=== PATIENT | female | born 1980 | race African-American/Black ===

== ENCOUNTER → 2016-07-04 | Outpatient (CLI) | payer BC ==
[2016-07-04 18:25] LABS: BASO % 0.3 % (0.0-1.0); EOS % 0.8 % (0.0-3.0); LYMPH # 2.1 K/mm3 (1.5-4.5); LYMPH % 31.9 % (24.0-44.0); MEAN CORPUSCULAR HEMOGLOBIN 30.3 pg (27.0-33.0); MEAN CORPUSCULAR HGB CONC 33.7 g/dl (32.0-36.5); MONO # 0.3 K/mm3 (0.0-0.8); MONO % 4.6 % (0.0-5.0); NEUTROPHILS # 3.7 K/mm3 (1.8-7.7); NEUTROPHILS % 60.4 % (36.0-66.0); RED CELL DISTRIBUTION WIDTH 12.7 % (11.5-14.5); WHITE BLOOD COUNT 6.1 K/mm3 (4.0-10.0)
[2016-07-04 18:35] LABS: ALBUMIN 3.9 GM/DL (3.2-5.2); ALBUMIN/GLOBULIN RATIO 1.22 (1.00-1.93); ALKALINE PHOSPHATASE 60 U/L (45-117); ALT/SGPT 15 U/L (12-78); ANION GAP 9 MEQ/L (8-16); AST/SGOT 16 U/L (15-37); BILIRUBIN,TOTAL 0.5 MG/DL (0.2-1.0); BLOOD UREA NITROGEN 10 MG/DL (7-18); CALCIUM LEVEL 8.7 MG/DL (8.5-10.1); CARBON DIOXIDE LEVEL 26 MEQ/L (21-32); CHLORIDE LEVEL 104 MEQ/L (98-107); CHOLESTEROL LEVEL 173 MG/DL (<200); CREATININE FOR GFR 1.06 MG/DL (0.55-1.02); GLOMERULAR FILTRATION RATE > 60.0 (>60); GLUCOSE, FASTING 70 MG/DL (70-105); SODIUM LEVEL 139 MEQ/L (136-145); THYROXINE (T4) 8.2 UG/DL (4.5-12.0); TOTAL PROTEIN 7.1 GM/DL (6.4-8.2); TRIGLYCERIDES LEVEL 67 MG/DL (<150)
== END ==
LOC: M SMT 15:31
PROVIDERS: ATTEND Family Medicine
DX: Z00.00 Encounter for general adult medical examination without abnormal findings (principal); E55.9 Vitamin D deficiency, unspecified

== ENCOUNTER → 2017-11-06 | Outpatient (REF) | payer BC ==
[2017-11-10 14:22] LABS: HPV HYBRID CAPTURE II Negative (Negative)
== END ==
LOC: M LAB REF 17:03
DX: Z12.4 Encounter for screening for malignant neoplasm of cervix (principal)
CPT/HCPCS: G0123

== ENCOUNTER → 2017-11-20 | Outpatient (REF) | payer BC ==
[2017-11-20 11:06] LABS: BASO % 0.4 % (0.0-1.0); EOS # 0.1 10^3/uL (0.0-0.50); HEMATOCRIT 33.7 % (36.0-47.0); HEMOGLOBIN 11.7 g/dl (12.0-15.5); IMMATURE GRANULOCYTE % 0.2 % (0-3.0); LYMPH # 1.5 10^3/uL (1.5-4.5); LYMPH % 30.1 % (24.0-44.0); MEAN CORPUSCULAR HEMOGLOBIN 30.5 pg (27.0-33.0); MEAN CORPUSCULAR HGB CONC 34.7 g/dl (32.0-36.5); MONO # 0.3 10^3/uL (0.0-0.8); NEUTROPHILS # 3.1 10^3/uL (1.8-7.7); NEUTROPHILS % 62.3 % (36.0-66.0); PLATELET COUNT, AUTOMATED 299 10^3/uL (150-450); RED BLOOD COUNT 3.83 10^6/uL (4.00-5.40); RED CELL DISTRIBUTION WIDTH 13.1 % (11.5-14.5)
[2017-11-20 11:26] LABS: TOTAL 25(OH) VITAMIN D 34.4 NG/ML (30.0-100.0)
[2017-11-20 11:34] LABS: ALBUMIN 3.9 GM/DL (3.2-5.2); ALBUMIN/GLOBULIN RATIO 1.11 (1.00-1.93); ALKALINE PHOSPHATASE 77 U/L (45-117); ALT/SGPT 18 U/L (12-78); ANION GAP 9 MEQ/L (8-16); AST/SGOT 15 U/L (7-37); BILIRUBIN,TOTAL 0.4 MG/DL (0.2-1.0); BLOOD UREA NITROGEN 14 MG/DL (7-18); CALCIUM LEVEL 8.9 MG/DL (8.5-10.1); CARBON DIOXIDE LEVEL 26 MEQ/L (21-32); CHLORIDE LEVEL 107 MEQ/L (98-107); CREATININE FOR GFR 1.15 MG/DL (0.55-1.30); FERRITIN 38 NG/ML (8-252); GLOMERULAR FILTRATION RATE > 60.0 (>60); GLUCOSE, FASTING 96 MG/DL (70-100); IRON (FE) 75 UG/DL (50-170); PERCENT SATURATION 24.5 % (13.2-45.0); POTASSIUM SERUM 4.3 MEQ/L (3.5-5.1); SODIUM LEVEL 142 MEQ/L (136-145); TOTAL IRON BINDING CAPACITY 306 UG/DL (250-450); TOTAL PROTEIN 7.4 GM/DL (6.4-8.2)
== END ==
LOC: M SFHCSACK 10:47
DX: D64.9 Anemia, unspecified (principal); E55.9 Vitamin D deficiency, unspecified
CPT/HCPCS: 83550

== ENCOUNTER → 2017-11-20 | Outpatient (REF) | payer BC ==
[2017-11-20 11:29] LABS: FREE T4 0.81 NG/DL (0.76-1.46)
== END ==
LOC: M LABDRWSH 10:50
DX: N92.0 Excessive and frequent menstruation with regular cycle (principal)
CPT/HCPCS: 84443

== ENCOUNTER → 2017-12-21 | Outpatient (REF) | payer BC | LOC: M SFHCSACK 14:03 | DX: J02.9 Acute pharyngitis, unspecified (principal) | CPT/HCPCS: 87081 ==

== ENCOUNTER → 2018-01-20 | Outpatient (REF) | payer BC ==
[2018-01-20 12:02] LABS: BASO % 0.4 % (0.0-1.0); EOS # 0.1 10^3/uL (0.0-0.50); EOS % 1.6 % (0.0-3.0); HEMATOCRIT 34.3 % (36.0-47.0); HEMOGLOBIN 11.7 g/dl (12.0-15.5); IMMATURE GRANULOCYTE % 0.3 % (0-3.0); LYMPH # 2.6 10^3/uL (1.5-4.5); MEAN CORPUSCULAR HEMOGLOBIN 30.2 pg (27.0-33.0); MEAN CORPUSCULAR HGB CONC 34.1 g/dl (32.0-36.5); MEAN CORPUSCULAR VOLUME 88.4 fl (80.0-96.0); MONO # 0.5 10^3/uL (0.0-0.8); MONO % 6.2 % (0.0-5.0); NEUTROPHILS # 4.1 10^3/uL (1.8-7.7); NEUTROPHILS % 56.5 % (36.0-66.0); PLATELET COUNT, AUTOMATED 309 10^3/uL (150-450); RED BLOOD COUNT 3.88 10^6/uL (4.00-5.40); RED CELL DISTRIBUTION WIDTH 13.2 % (11.5-14.5); WHITE BLOOD COUNT 7.3 10^3/uL (4.0-10.0)
[2018-01-20 12:22] LABS: ALBUMIN 3.7 GM/DL (3.2-5.2); ALBUMIN/GLOBULIN RATIO 1.19 (1.00-1.93); ALKALINE PHOSPHATASE 83 U/L (45-117); ALT/SGPT 20 U/L (12-78); ANION GAP 10 MEQ/L (8-16); AST/SGOT 14 U/L (7-37); BILIRUBIN,TOTAL 0.5 MG/DL (0.2-1.0); BLOOD UREA NITROGEN 13 MG/DL (7-18); CALCIUM LEVEL 8.9 MG/DL (8.5-10.1); CARBON DIOXIDE LEVEL 23 MEQ/L (21-32); CHLORIDE LEVEL 107 MEQ/L (98-107); CREATININE FOR GFR 1.14 MG/DL (0.55-1.30); FERRITIN 39 NG/ML (8-252); GLOMERULAR FILTRATION RATE > 60.0 (>60); GLUCOSE, FASTING 102 MG/DL (70-100); IRON (FE) 98 UG/DL (50-170); PERCENT SATURATION 34.9 % (13.2-45.0); SODIUM LEVEL 140 MEQ/L (136-145); TOTAL 25(OH) VITAMIN D 22.4 NG/ML (30.0-100.0); TOTAL IRON BINDING CAPACITY 281 UG/DL (250-450); TOTAL PROTEIN 6.8 GM/DL (6.4-8.2)
== END ==
LOC: M LABDRAWP 11:44
DX: E55.9 Vitamin D deficiency, unspecified (principal)

== ENCOUNTER → 2018-04-22 | Outpatient (CLI) | payer BC ==
[~2018-04-22] MED LIST: MISO200T56 PO
--- NOTE | 2018-04-22 17:33 | REP ---
Chest two views HISTORY: Chest pain Comparison: None The lungs are clear. The heart is normal in size. The pulmonary vasculature is normal in appearance. The bony structure is intact. IMPRESSION: No acute disease. Electronically Signed by Casey Regalado MD 04/22/2018 05:25 P
== END ==
LOC: M LRY 16:57
PROVIDERS: ATTEND Physician Assistant
DX: R07.9 Chest pain, unspecified (principal)

== ENCOUNTER → 2018-04-22 | Outpatient (REF) | payer BC ==
[2018-04-22 20:31] LABS: BASO % 0.3 % (0.0-1.0); EOS % 0.3 % (0.0-3.0); HEMATOCRIT 34.5 % (36.0-47.0); HEMOGLOBIN 12.2 g/dl (12.0-15.5); LYMPH # 2.3 10^3/uL (1.5-4.5); LYMPH % 36.1 % (24.0-44.0); MEAN CORPUSCULAR HEMOGLOBIN 30.7 pg (27.0-33.0); MEAN CORPUSCULAR HGB CONC 35.4 g/dl (32.0-36.5); MEAN CORPUSCULAR VOLUME 86.9 fl (80.0-96.0); MONO # 0.5 10^3/uL (0.0-0.8); NEUTROPHILS # 3.5 10^3/uL (1.8-7.7); NEUTROPHILS % 55.1 % (36.0-66.0); PLATELET COUNT, AUTOMATED 284 10^3/uL (150-450); RED BLOOD COUNT 3.97 10^6/uL (4.00-5.40); WHITE BLOOD COUNT 6.3 10^3/uL (4.0-10.0)
[2018-04-22 20:40] LABS: ALBUMIN 4.1 GM/DL (3.2-5.2); BILIRUBIN,TOTAL 0.3 MG/DL (0.2-1.0); CREATININE FOR GFR 1.28 MG/DL (0.55-1.30); GLOMERULAR FILTRATION RATE 59.9 (>60); POTASSIUM SERUM 4.1 MEQ/L (3.5-5.1); THYROID STIMULATING HORMONE 2.52 uIU/ML (0.358-3.740); TOTAL PROTEIN 7.5 GM/DL (6.4-8.2)
== END ==
LOC: M SFHCLERA 17:02
PROVIDERS: ATTEND Physician Assistant
DX: R07.9 Chest pain, unspecified (principal)

== ENCOUNTER 2018-04-28 10:13 | Emergency (ER) | payer BC ==
[~2018-04-28] VITALS: Ht 154.9 cm; Wt 101.4 kg
[2018-04-28] MEDS ORDERED: MISO200T56 PO (10:20)
[2018-04-28 11:32] LABS: BASO % 0.4 % (0.0-1.0); EOS % 0.6 % (0.0-3.0); HEMATOCRIT 34.7 % (36.0-47.0); HEMOGLOBIN 12.2 g/dl (12.0-15.5); LYMPH # 1.4 10^3/uL (1.5-4.5); LYMPH % 28.6 % (24.0-44.0); MEAN CORPUSCULAR HEMOGLOBIN 31.1 pg (27.0-33.0); MEAN CORPUSCULAR HGB CONC 35.2 g/dl (32.0-36.5); MEAN CORPUSCULAR VOLUME 88.5 fl (80.0-96.0); MONO # 0.3 10^3/uL (0.0-0.8); MONO % 5.5 % (0.0-5.0); NEUTROPHILS # 3.2 10^3/uL (1.8-7.7); NEUTROPHILS % 64.7 % (36.0-66.0); PLATELET COUNT, AUTOMATED 275 10^3/uL (150-450); RED BLOOD COUNT 3.92 10^6/uL (4.00-5.40); WHITE BLOOD COUNT 4.9 10^3/uL (4.0-10.0)
[2018-04-28 12:14] LABS: ALBUMIN 4.1 GM/DL (3.2-5.2); ALT/SGPT 15 U/L (12-78); BILIRUBIN,DIRECT < 0.1 MG/DL (0.0-0.2); BILIRUBIN,TOTAL 0.5 MG/DL (0.2-1.0); BLOOD UREA NITROGEN 10 MG/DL (7-18); CALCIUM LEVEL 8.8 MG/DL (8.5-10.1); CARBON DIOXIDE LEVEL 26 MEQ/L (21-32); CHLORIDE LEVEL 105 MEQ/L (98-107); CPK CREATINE PHOSPHOKINASE 213 U/L (26-192); CREATININE FOR GFR 1.03 MG/DL (0.55-1.30); GLOMERULAR FILTRATION RATE > 60.0 (>60); GLUCOSE, FASTING 95 MG/DL (70-100); LIPASE 170 U/L (73-393); MB/CK RELATIVE INDEX 0.56 (< OR =4); POTASSIUM SERUM 3.9 MEQ/L (3.5-5.1); SODIUM LEVEL 139 MEQ/L (136-145); TOTAL PROTEIN 7.1 GM/DL (6.4-8.2); TROPONIN I < 0.02 NG/ML (< 0.10)
[2018-04-28] MEDS ORDERED: ISOVUE-370 76% 100ML VIAL (Q9967) As Ordered ONE (12:56)
[2018-04-28 13:46] VITALS: BP 131/83
--- NOTE | 2018-04-28 15:14 | REP ---
CHEST, TWO VIEWS: COMPARISON: 04/22/2018 There is no evidence of acute infiltrate. No pleural effusion is seen. The heart is normal in size. The mediastinal silhouette is unremarkable. The visualized osseous structures are intact. IMPRESSION: No acute pulmonary disease. Electronically Signed by Martin Puckett MD 04/28/2018 08:12 P
--- NOTE | 2018-04-28 16:19 | REP ---
CT ANGIOGRAM CHEST: TECHNIQUE: Axial contrast enhanced images from the thoracic inlet to the upper abdomen using 100 mL Isovue 370 intravenous contrast material with multiplanar reformations. There is no CT evidence of pulmonary embolism. There is no thoracic aortic aneurysm or dissection. The heart is normal in size. There is no adenopathy in the chest. There is no pleural or pericardial effusion. Lungs are clear. The visualized portions of the upper abdomen, note is made of multiple small gallstones in the gallbladder without gallbladder wall thickening or evidence of significant biliary dilatation. IMPRESSION: No CT evidence of pulmonary embolism or other acute finding. Multiple gallstones in the gallbladder. Electronically Signed by Martin Puckett MD 04/28/2018 08:16 P
--- NOTE | 2018-04-28 17:13 | ECGEPIP ---
Stationary ECG Study [facility] - ED Test Date: 2018-04-28 Pat Name: JEANINE PICHARDO Department: Room: - Gender: F Undercoater: FLAQUITO : 1980 Requested By: Jemma Mendoza Order Number: [id number] Reading MD: Joaquín Goldberg Measurements Intervals [place] Rate: 68 P: 47 [place]: 147 QRS: 25 QRSD: 77 T: 30 QT: 377 QTc: 403 Interpretive Statements SINUS RHYTHM POSSIBLE LEFT ATRIAL ENLARGEMENT BENIGN EARLY REPOLARIZATION NO PRIORS FOR COMPARISON Electronically Signed On 04-28-2018 17:12:53 EST by Joaquín Goldberg
== END 2018-04-28 13:52 | disposition home or self-care (01) ==
LOC: M ED 10:13
DX: R07.89 Other chest pain (principal); R06.02 Shortness of breath; D25.9 Leiomyoma of uterus, unspecified
CPT/HCPCS: 71046; 71275; 80048; 80076; 81025; 82550; 82553; 83690; 84443; 84484; 85025; 85379; 93005; 93041; 94760; 99284; Q9967

== ENCOUNTER → 2018-06-11 | Outpatient (REF) | payer BC | LOC: M LAB REF 11:48 | PROVIDERS: ATTEND Nurse Practitioner Adult Health | DX: D64.9 Anemia, unspecified (principal) ==

== ENCOUNTER → 2018-07-07 | Outpatient (REF) | payer BC | LOC: M LAB REF 12:29 | PROVIDERS: ATTEND Nurse Practitioner Adult Health | DX: R31.9 Hematuria, unspecified (principal) ==

== ENCOUNTER → 2018-07-08 | Outpatient (CLI) | payer BC ==
--- NOTE | 2018-07-08 09:32 | REP ---
RIGHT UPPER QUADRANT ULTRASOUND: Real-time sonographic evaluation of the right upper quadrant performed. Mobile gallstones are seen in the gallbladder. There is no gallbladder wall thickening or pericholecystic fluid. There is no intrahepatic or extrahepatic biliary diltation, common bile duct measuring 2 mm. Liver and pancreas demonstrate no gross mass. Pancreas is not optimally seen due to overlying bowel gas. Right kidney demonstrates no hydronephrosis with normal size 9.3 cm in length. IMPRESSION: Mobile gallstones in the gallbladder without evidence of gallbladder wall thickening, pericholecystic fluid, or biliary dilatation. Electronically Signed by Martin Puckett MD 07/08/2018 11:08 A
== END ==
LOC: M RAD 06:16
PROVIDERS: ATTEND Nurse Practitioner Adult Health
DX: K80.80 Other cholelithiasis without obstruction (principal)

== ENCOUNTER → 2018-12-09 | Outpatient (REF) | payer BC ==
[~2018-12-09] MED LIST changes: +FAMO1TAB11 PO; +IRON27TA2 PO; +OMEP-221 PO; +VITA500045 PO
== END ==
LOC: M SFHCLERA 17:36
PROVIDERS: ATTEND Nurse Practitioner Family
DX: R31.9 Hematuria, unspecified (principal)

== ENCOUNTER → 2018-12-09 | Outpatient (CLI) | payer BC ==
[~2018-12-09] MED LIST changes: +SUCR1TAB56 PO
--- NOTE | 2018-12-09 18:22 | REP ---
PA and lateral chest: Comparison is 04/28/2018. The lung parr are clear. The cardiac size is normal. The karlo, mediastinum, and skeletal structures are unremarkable. There is no free subdiaphragmatic air. Impression: Negative PA and lateral chest. There is no interval change. Electronically Signed by Martin Forrest MD 12/09/2018 06:13 P
--- NOTE | 2018-12-10 07:27 | REP ---
Supine abdomen two views: The bowel gas pattern is normal. There are no calcifications. The skeletal structures and soft tissues otherwise are unremarkable. Impression: Normal bowel gas pattern. Electronically Signed by Martin Forrest MD 12/09/2018 06:14 P
== END ==
LOC: M LRY 17:43
PROVIDERS: ATTEND Nurse Practitioner Family
DX: R07.9 Chest pain, unspecified (principal); R10.9 Unspecified abdominal pain

== ENCOUNTER 2018-12-13 19:57 | Emergency (ER) | payer BC ==
[~2018-12-13] VITALS: Ht 154.9 cm; Wt 99.5 kg
[~2018-12-13 19:57] MED LIST changes: -FAMO1TAB11 PO; -IRON27TA2 PO; -OMEP-221 PO; -SUCR1TAB56 PO; -VITA500045 PO
[2018-12-13] MEDS ORDERED: VITA500045 PO (20:07)
[2018-12-13] MEDS ORDERED: FAMO1TAB11 PO (20:07)
[2018-12-13] MEDS ORDERED: IRON27TA2 PO (20:07)
[2018-12-13] MEDS ORDERED: OMEP-221 PO (20:07)
[2018-12-13 20:58] LABS: BASO % 0.3 % (0.0-1.0); EOS # 0.1 10^3/uL (0.0-0.5); EOS % 2.1 % (0.0-3.0); HEMATOCRIT 32.9 % (36.0-47.0); HEMOGLOBIN 11.5 g/dl (12.0-15.5); LYMPH # 1.9 10^3/uL (1.5-5.0); LYMPH % 30.3 % (24.0-44.0); MEAN CORPUSCULAR HEMOGLOBIN 31.2 pg (27.0-33.0); MEAN CORPUSCULAR VOLUME 89.2 fl (80.0-96.0); MONO # 0.5 10^3/uL (0.0-0.8); MONO % 7.6 % (0.0-5.0); NEUTROPHILS # 3.7 10^3/uL (1.5-8.5); NEUTROPHILS % 59.5 % (36.0-66.0); PLATELET COUNT, AUTOMATED 250 10^3/uL (150-450); RED BLOOD COUNT 3.69 10^6/uL (4.00-5.40); WHITE BLOOD COUNT 6.2 10^3/uL (4.0-10.0)
[2018-12-13 21:18] LABS: BLOOD UREA NITROGEN 9 MG/DL (7-18); CALCIUM LEVEL 8.9 MG/DL (8.5-10.1); CARBON DIOXIDE LEVEL 26 MEQ/L (21-32); CHLORIDE LEVEL 107 MEQ/L (98-107); CREATININE FOR GFR 1.16 MG/DL (0.55-1.30); GLOMERULAR FILTRATION RATE > 60.0 (>58); GLUCOSE, FASTING 98 MG/DL (70-100); LIPASE 283 U/L (73-393); POTASSIUM SERUM 3.7 MEQ/L (3.5-5.1); SODIUM LEVEL 140 MEQ/L (136-145)
[2018-12-13 21:26] LABS: HCG, SERUM QUALITATIVE NEGATIVE (NEGATIVE)
[2018-12-13 21:48] LABS: ALBUMIN 3.7 GM/DL (3.2-5.2); ALT/SGPT 20 U/L (12-78); BILIRUBIN,DIRECT < 0.1 MG/DL (0.0-0.2); BILIRUBIN,TOTAL 0.2 MG/DL (0.2-1.0); TOTAL PROTEIN 7.3 GM/DL (6.4-8.2)
--- NOTE | 2018-12-13 22:15 | REPVR ---
PROCEDURE INFORMATION: Exam: CT Cervical Spine Without Contrast Exam date and time: 12/13/2018 9:40 PM Clinical history: 38 years old, female; Neck pain; Additional info: Neck pain with radiation to left arm TECHNIQUE: Imaging protocol: Computed tomography images of the cervical spine without contrast. Radiation optimization: All CT scans at this facility use at least one of these dose optimization techniques: automated exposure control; mA and/or kV adjustment per patient size (includes targeted exams where dose is matched to clinical indication); or iterative reconstruction. COMPARISON: No relevant prior studies available. FINDINGS: Vertebrae: Reversal of normal cervical lordosis. Discs/Spinal canal/Neural foramina: No spinal stenosis. No neural foraminal narrowing. Soft tissues: Unremarkable. Lungs: Lung apices are normal. IMPRESSION: No acute findings. Electronically signed by: Tai Nicole On 12/13/2018 22:15:22 PM
--- NOTE | 2018-12-13 23:29 | REPVR ---
PROCEDURE INFORMATION: Exam: US Abdomen Limited, Right Upper Quadrant Exam date and time: 12/13/2018 11:18 PM Clinical history: 38 years old, female; Abdominal pain; Colic; Additional info: Ruq pain TECHNIQUE: Imaging protocol: Real-time ultrasound of the abdomen with image documentation. Examination was focused on the right upper quadrant. COMPARISON: Abdomen, limited US 07/08/2018 6:35 AM FINDINGS: Liver: Normal. No masses. Gallbladder: Gallbladder demonstrates numerous shadowing foci consistent with gallstones. No gallbladder wall thickening. Common bile duct: The common bile duct measures 4.9 mm. No mass or choledocholithiasis. Pancreas: Proximal pancreas unremarkable. Pancreatic tail streak overlying bowel gas. Right kidney: Right kidney measures 9.8 x 4.3 x 4.1 cm. IMPRESSION: 1. Gallbladder demonstrates numerous shadowing foci consistent with gallstones. No gallbladder wall thickening. 2. Otherwise unremarkable scan. Electronically signed by: Tai Nicole On 12/13/2018 23:29:35 PM
[2018-12-14 00:48] VITALS: BP 125/77
== END 2018-12-14 00:51 | disposition home or self-care (01) ==
LOC: M ED 19:57
DX: K80.20 Calculus of gallbladder without cholecystitis without obstruction (principal); M54.2 Cervicalgia; E66.9 Obesity, unspecified; K21.9 Gastro-esophageal reflux disease without esophagitis; Z79.899 Other long term (current) drug therapy

== ENCOUNTER → 2019-01-19 | Outpatient (CLI) | payer BC ==
[~2019-01-19] MED LIST changes: +FAMO1TAB11 PO; +IRON27TA2 PO; +OMEP-221 PO; +SUCR1TAB56 PO; +VITA500045 PO
--- NOTE | 2019-01-20 11:13 | REP ---
Clinical: Fibroid uterus. Technique: Transabdominal pelvic ultrasound followed by transvaginal examination for better evaluation of the endometrium and adnexa with color Doppler evaluation of the ovaries. Findings: Bladder is normal and measures 10.0 x 8.9 x 5.3 cm Heterogeneous anteverted uterus measures 8.4 x 3.6 x 4.7 cm. Endometrial complex measures 5.3 mm thickness. Anterior intramural fibroid measures 12 mm maximal diameter and is essentially unchanged. No further uterine or endometrial abnormalities are appreciated. Bilateral ovaries are relatively normal in appearance and vascularity. Right ovary measures 4.3 x 2.1 x 2.9 cm (RI 0.59) and includes 2.1 cm cyst / dominant follicle. Left ovary measures 4.0 x 2.1 x 2.7 cm (RI 0.63). No pelvic free fluid or adnexal mass lesion. Impression: 1. 12 mm anterior intramural fibroid unchanged. 2. 2.1 cm cyst versus dominant follicle in the right ovary. Electronically Signed by Terry Perez MD 01/20/2019 11:04 A
== END ==
LOC: M RAD 06:23
PROVIDERS: ATTEND Obstetrics & Gynecology
DX: D25.1 Intramural leiomyoma of uterus (principal)

== ENCOUNTER 2019-02-01 08:47 | Day surgery (SDC) | payer BC ==
[~2019-02-01] VITALS: Ht 154.9 cm; Wt 99.8 kg
[~2019-02-01 08:47] MED LIST changes: +LIDOCAINE 1% MDV 20ML VIAL SQ PRN; +LR 1,000 ML IV ONE; +ceFAZolin SOD 2 GM in IV 1 EA IV ONE
[2019-02-01] MEDS ORDERED: LIDOCAINE 2% INJ 100 MG/5 ML SDV (FOR ANES.) As Ordered ONE (09:17)
[2019-02-01] MEDS ORDERED: PROPOFOL 200 MG/20 ML VIAL As Ordered ONE (09:17)
[2019-02-01] MEDS ORDERED: ROCURONIUM BROMIDE 50 MG/5 ML VIAL As Ordered ONE (09:17)
[2019-02-01] MEDS ORDERED: KETOROLAC 60 MG/2 ML VIAL (J1885) As Ordered ONE (09:18)
[2019-02-01] MEDS ORDERED: ONDANSETRON 4MG/2ML VIAL (J2405) As Ordered ONE (09:18)
[2019-02-01] MEDS ORDERED: dexameTHASONE 4 MG/ML 1ML VIAL (J1100) As Ordered ONE (09:21)
[2019-02-01] MEDS ORDERED: BUPIVACAINE LIPOSOME/PF 1.3% 20ML VIAL (13.3MG/ML)(EXPAREL)(C9290 PER1MG) As Ordered ONE (10:03)
[2019-02-01] MEDS ORDERED: BUPIVACAINE/EPIN 0.25% 30 ML VIAL As Ordered ONE (10:03)
[2019-02-01] MEDS ORDERED: fentaNYL 250 MCG/5 ML INJECTION (J3010) As Ordered ONE (10:09)
[2019-02-01] MEDS ORDERED: MIDAZOLAM INJ 2 MG/2 ML VIAL (J2250) As Ordered ONE (10:09)
[2019-02-01] MEDS ORDERED: SUGAMMADEX SODIUM 500 MG/5 ML VIAL (BRIDION) As Ordered ONE ×2 (11:05→11:08)
--- NOTE | 2019-02-01 11:37 | RO ---
DATE OF PROCEDURE: 02/01/2019 PREOPERATIVE DIAGNOSIS: Symptomatic gallstones. POSTOPERATIVE DIAGNOSIS: Symptomatic gallstones. PROCEDURE: Laparoscopic cholecystectomy. SURGEON: Steven Sawant MD IRON CUTTER: ANESTHESIA: General endotracheal anesthesia. ESTIMATED BLOOD LOSS: Minimal. FLUIDS: Crystalloid. BRIEF PROCEDURE SUMMARY: The patient was brought to the operating room and was given general anesthesia. After adequate anesthesia and preoperative antibiotics were given, the patient was prepped and draped in the usual sterile fashion. Next, a supraumbilical incision was made with skin knife. Blunt dissection was carried down to fascia. Fascia was grasped and elevated, and a Veress needle placed into the abdominal cavity insufflated to 15 mm pressure. A dilating 10 mm trocar was placed at this time and under direct visualization an epigastric and two lateral trocars were placed. The gallbladder was grasped, retracted superiorly and several adhesions were taken down with the hook cautery and down to the neck of the gallbladder which was cleared of peritoneum using the hook cautery, and then eventually dissection continued across the neck of the gallbladder where the cystic artery was easily identified with a cystic duct node on this. It was a very small lymph node, but in any case this was followed up onto the gallbladder itself. The window behind the neck of the gallbladder was created nicely and then after a critical view of safety was obtained the cystic artery was clipped proximally and distally and transected and the cystic duct was clipped proximally and distally and transected. The gallbladder was removed from the gallbladder bed using electrocautery. Right at the tip of the liver there was a possible duct of Luschka or a small vessel that I clipped before transecting. The gallbladder then was removed in an Endo Catch bag, brought out through the umbilicus. Right upper quadrant was copiously irrigated until clear and all trocars were closed with #4-0 Vicryl after the umbilical site was closed with #0 Vicryl in the fascial level. Steri-Strips and a dry sterile dressing was applied. The patient was awakened, extubated, brought to recovery room awake, alert and hemodynamically stable. Sponge and needle counts correct times two.
[2019-02-01] MEDS ORDERED: fentaNYL 100 MCG/2 ML INJECTION (J3010) IV PRN (11:45)
[2019-02-01] MEDS ORDERED: ONDANSETRON 4MG/2ML VIAL (J2405) IV PRN (11:45)
[2019-02-01] MEDS ORDERED: LR 1,000 ML IV SCH ×2 (11:45→12:46)
[2019-02-01] MEDS ORDERED: oxyCODONE 5MG TAB PO PRN (11:45)
[2019-02-01] MEDS ORDERED: NORCO, ANEXSIA 5/325MG TABLET (HYDROcodone/ACETAMINOPHEN) PO PRN (12:46)
[2019-02-01 13:20] VITALS: BP 99/57
[2019-02-01] MEDS ORDERED: KETOROLAC 30 MG/ML VIAL (J1885) IV SCH (18:00)
== END 2019-02-01 13:27 | disposition home or self-care (01) ==
LOC: M SDC 08:47
PROVIDERS: ATTEND Surgery
DX: K80.10 Calculus of gallbladder with chronic cholecystitis without obstruction (principal); K21.9 Gastro-esophageal reflux disease without esophagitis; D64.9 Anemia, unspecified; Z79.899 Other long term (current) drug therapy
CPT/HCPCS: 47562; 81025; 88304; J0690; J1100; J1885; J2250; J2405; J3010

== ENCOUNTER → 2019-04-25 | Outpatient (REF) | payer BC ==
[~2019-04-25] MED LIST changes: -LIDOCAINE 1% MDV 20ML VIAL SQ PRN; -LR 1,000 ML IV ONE; -ceFAZolin SOD 2 GM in IV 1 EA IV ONE
[2019-04-25 14:21] LABS: INFLUENZA A AMPLIFICATION NEGATIVE (NEGATIVE); INFLUENZA B AMPLIFICATION NEGATIVE (NEGATIVE)
== END ==
LOC: M LAB REF 12:14
PROVIDERS: ATTEND Nurse Practitioner Adult Health
DX: J02.9 Acute pharyngitis, unspecified (principal)

== ENCOUNTER → 2019-11-11 | Outpatient (REF) | payer OTHER ==
[~2019-11-11] MED LIST changes: +CETI-24 PO; +IBUP-1022 PO; +NORC1TAB7 PO; +VITA50005 PO
[2019-11-14 13:20] LABS: PERCENT SATURATION 23.1 % (13.2-45.0)
[2019-11-14 13:56] LABS: FOLATE 19.2 NG/ML
== END ==
LOC: M LAB REF 13:19
PROVIDERS: ATTEND Registered Nurse
DX: D64.9 Anemia, unspecified (principal)

== ENCOUNTER → 2019-12-24 | Outpatient (CLI) | payer OTHER | LOC: M LABSMTC 08:58 | PROVIDERS: ATTEND Anesthesiology | DX: Z01.812 Encounter for preprocedural laboratory examination (principal); Z20.828 Contact with and (suspected) exposure to other viral communicable diseases | CPT/HCPCS: C9803; U0003 ==

== ENCOUNTER 2019-12-29 06:04 | Day surgery (SDC) | payer OTHER ==
[~2019-12-29] VITALS: Ht 154.9 cm; Wt 99.8 kg
[2019-12-29] VITALS (9 sets, daily range): BP systolic 102–122; BP diastolic 59–76
[~2019-12-29 06:04] MED LIST changes: -IBUP-1022 PO; -NORC1TAB7 PO
[2019-12-29 06:31] LABS: HEMATOCRIT 33.3 % (36.0-47.0); HEMOGLOBIN 11.2 g/dl (12.0-15.5); MEAN CORPUSCULAR HGB CONC 33.6 g/dl (32.0-36.5); MEAN CORPUSCULAR VOLUME 89.3 fl (80.0-96.0); PLATELET COUNT, AUTOMATED 261 10^3/uL (150-450); RED BLOOD COUNT 3.73 10^6/uL (4.00-5.40); WHITE BLOOD COUNT 5.1 10^3/uL (4.0-10.0)
[2019-12-29] MEDS ORDERED: LR 1,000 ML IV ONE (07:00)
[2019-12-29] MEDS ORDERED: ceFAZolin SOD 2 GM in IV 1 EA IV ONE (07:00)
[2019-12-29] MEDS ORDERED: MIDAZOLAM INJ 2MG/2ML VIAL (J2250 PER 1MG) As Ordered ONE (07:01)
[2019-12-29] MEDS ORDERED: fentaNYL 100 MCG/2 ML INJECTION (J3010) As Ordered ONE (07:01)
[2019-12-29] MEDS ORDERED: propofoL 200 MG/20 ML VIAL As Ordered ONE ×2 (07:04→09:27)
[2019-12-29] MEDS ORDERED: LIDOCAINE 2% 100MG/5ML SDV (FOR ANES.) As Ordered ONE (07:05)
[2019-12-29] MEDS ORDERED: ROCURONIUM BROMIDE 50 MG/5 ML VIAL As Ordered ONE (07:05)
[2019-12-29] MEDS ORDERED: dexameTHASONE 4 MG/ML 1ML VIAL (J1100 PER 1MG) As Ordered ONE (07:16)
[2019-12-29] MEDS ORDERED: ONDANSETRON 4MG/2ML VIAL As Ordered ONE (07:16)
[2019-12-29] MEDS ORDERED: METOCLOPRAMIDE INJ 10MG/2ML VIAL (J2765 PER 1) As Ordered ONE (07:16)
[2019-12-29] MEDS ORDERED: KETOROLAC 60MG 2ML VIAL As Ordered ONE (07:16)
[2019-12-29] MEDS ORDERED: ACETAMINOPHEN 1000MG 100ML IV BTL (OFIRMEV) (J0131 PER 10MG) As Ordered ONE (07:50)
[2019-12-29] MEDS ORDERED: SUGAMMADEX SODIUM 500 MG/5 ML VIAL (BRIDION) As Ordered ONE (08:26)
[2019-12-29] MEDS ORDERED: HYDROmorphone HCL 2 MG/ML 1ML VIAL (J1170) As Ordered ONE (09:15)
[2019-12-29] MEDS ORDERED: MORPHINE 1MG/ML IN 0.9% NACL 100ML IV BAG As Ordered ONE (09:41)
[2019-12-29] MEDS: LR 1,000 ML IV SCH ×2 (09:45→18:30)
[2019-12-29] MEDS ORDERED: METOCLOPRAMIDE INJ 10MG/2ML VIAL (J2765 PER 1) IV PRN (10:30)
[2019-12-29] MEDS ORDERED: NALBUPHINE HCL 10 MG/ML AMP (J2300) IV PRN (10:30)
[2019-12-29] MEDS ORDERED: MORPHINE 1MG/ML IN 0.9% NACL 100ML IV BAG IV PRN (10:30)
[2019-12-29] MEDS ORDERED: EPIDURAL/PCA KEYS XX PRN (10:30)
[2019-12-29] MEDS ORDERED: NS 1,000 ML IV SCH (10:30)
[2019-12-29] MEDS ORDERED: MEPERIDINE INJ 25 MG/ML VIAL (J2175) IV PRN (10:30)
[2019-12-29] MEDS ORDERED: diphenhydrAMINE 50MG/ML VIAL (J1200) IV PRN (10:30)
[2019-12-29] MEDS ORDERED: oxyCODONE 5MG TAB PO PRN (10:30)
[2019-12-29] MEDS ORDERED: LR 1,000 ML IV SCH (10:30)
[2019-12-29] MEDS ORDERED: NALOXONE INJ 0.4MG/1ML VIAL (J2310 PER 1MG) IV PRN (10:30)
[2019-12-29] MEDS ORDERED: fentaNYL 100 MCG/2 ML INJECTION (J3010) IV PRN (10:30)
[2019-12-29] MEDS ORDERED: ONDANSETRON 4MG/2ML VIAL IV PRN (10:30)
[2019-12-29] MEDS ORDERED: IBUPROFEN 600MG TAB PO PRN (10:45)
[2019-12-29] MEDS: FAMOTIDINE 20 MG TAB PO SCH (14:54)
[2019-12-29] MEDS: CETIRIZINE (ZyrTEC) 10 MG TAB PO SCH (14:55)
[2019-12-29] MEDS: OMEPRAZOLE 20 MG CAP PO SCH (14:55)
--- NOTE | 2019-12-29 16:21 | RO ---
DATE OF OPERATION: 12/29/2019 PREOPERATIVE DIAGNOSIS: Pain, fibroid, dyspareunia and bleeding, failed conservative management. POSTOPERATIVE DIAGNOSIS: Pain, fibroid, dyspareunia and bleeding, failed conservative management, findings as expected. PROCEDURE: KATE, SUSAN. SURGEON: Marleny Cotton MD PSYCHIATRIC SECURITY NURSE: None. ANESTHESIA: General endotracheal anesthesia. SPECIMEN: Uterus, tubes and ovaries. BRIEF DESCRIPTION OF PROCEDURE AND FINDINGS: The patient was brought to the operating room where sufficient general endotracheal anesthesia was induced. She was prepped, draped and positioned in the usual fashion with the Hong with ability to back-fill placed and the uterine manipulator placed after uterus was sounded to 8.5. Attention was turned to the abdomen. A transverse semilunar incision was made below the umbilicus and sharp and blunt dissection continued to the level of the rectus fascia. This was secured with #0 Vicryl sutures, transversely incised with scalpel. The peritoneum was entered under direct visualization and then CO2 insufflation begun. Visualization of the peritoneal cavity showed some minor adhesions of the omentum above the umbilicus. I did not take those down, that was consistent with the patients previous surgery, we did not disrupt those. The inferior pelvis where she had her pain did not have extensive adhesions, some minor ones to the descending colon that did not distort its course and then down in the pelvis itself. Pictures were taken to document. There were some cysts on the left side, peritubal cysts, but reassuring appearance overall. Attention was then turned to the Enseal which was used to cauterize and transect the infundibulopelvic ligament starting on the left and moving to the right and worked our way through the broad to the round ligament which was carefully cauterized and transected and then we back-filled the bladder, confirmed that we had not come to close to the bladder and then attention was turned to the vaginal portion of the case. Removing not the Bouchra cannula but the instruments themselves from above, we then progressed to vaginal approach. Working vaginally the uterine manipulator was removed. Single tooth tenaculum was placed on the anterior and posterior aspect of the cervix with retractors in place. Circumferential incision was made around the base of the cervix and the cardinal ligaments were carefully isolated, clamped with De Payne clamps, transected and sutured with #0 Vicryl which was used throughout this portion of the case. The uterosacral ligaments were then carefully clamped, transected and ligated. The posterior reflection of the peritoneum entered and then attention turned anteriorly. Blunt dissection used to manipulate the bladder, bring the uterus down a little further and then the uterine vasculature was carefully clamped, transected and ligated in sequential fashion along the lateral aspect of the uterus, of course the anterior reflection of the peritoneum where it entered with the bladder retracted away behind the Geovanna so that we could carefully clamp, transect and ligate the pedicles until we reached the level of our previous dissection and then the uterus, cervix, attached ovaries and tubes were delivered intact and the pedicles carefully evaluated. There was good hemostasis noted. The patient was leveled out and the bladder back-filled again, there was no evidence of further blood from above, as we leveled the patient out again there was no evidence of injury to bladder or ureters. We went ahead and closed the cuff with #0 Vicryl in running locked stitch with good approximation and hemostasis achieved. We then returned to the abdominal umbilical port site and used the retention sutures to close the fascial layer and 3-0 Vicryl in subcuticular stitch at the skin with dry, sterile dressing applied. The procedure was then ended. EBL: 50 mL. FLUID REPLACEMENT: Crystalloid. COMPLICATIONS: None. CONDITION AND DISPOSITION: The patient tolerated the procedure well and was recovering in the recovery room in good condition. RAVI
[2019-12-30] MEDS: LR 1,000 ML IV SCH (01:41)
[2019-12-30 02:00] VITALS: BP 120/72
[2019-12-30 04:00] VITALS: BP 120/72
[2019-12-30 06:00] VITALS: BP 120/62
[2019-12-30] MEDS ORDERED: NORCO, ANEXSIA 5/325MG TABLET (HYDROcodone/ACETAMINOPHEN) PO PRN (06:00)
[2019-12-30 07:40] LABS: HEMATOCRIT 29.8 % (36.0-47.0); HEMOGLOBIN 10.2 g/dl (12.0-15.5); MEAN CORPUSCULAR HEMOGLOBIN 30.5 pg (27.0-33.0); MEAN CORPUSCULAR HGB CONC 34.2 g/dl (32.0-36.5); MEAN CORPUSCULAR VOLUME 89.2 fl (80.0-96.0); PLATELET COUNT, AUTOMATED 246 10^3/uL (150-450); RED BLOOD COUNT 3.34 10^6/uL (4.00-5.40)
[2019-12-30] MEDS ORDERED: NORC1TAB7 PO (08:54)
[2019-12-30] MEDS ORDERED: IBUP-1022 PO (08:55)
[2019-12-30] MEDS: FAMOTIDINE 20 MG TAB PO SCH (09:30)
[2019-12-30] MEDS: OMEPRAZOLE 20 MG CAP PO SCH (09:30)
[2019-12-30] MEDS: CETIRIZINE (ZyrTEC) 10 MG TAB PO SCH (09:30)
== END 2019-12-30 10:05 | disposition home or self-care (01) ==
LOC: M SDC 06:04 → M MSPAV 11:00 → M SDC 12-30 10:05
PROVIDERS: ATTEND Obstetrics & Gynecology
DX: R10.2 Pelvic and perineal pain (principal); N93.9 Abnormal uterine and vaginal bleeding, unspecified; N94.10 Unspecified dyspareunia; D25.9 Leiomyoma of uterus, unspecified; N80.0 Endometriosis of uterus; K21.9 Gastro-esophageal reflux disease without esophagitis; Z79.899 Other long term (current) drug therapy
CPT/HCPCS: 36415; 58571; 81025; 85027; 86850; 86900; 86901; 88307; 96360; 96361; J0131; J0690; J1100; J1170; J1885; J2250; J2405; J2765; J3010

== ENCOUNTER → 2020-05-07 | Outpatient (REF) | payer OTHER ==
[~2020-05-07] MED LIST changes: +IBUP-1022 PO; +NORC1TAB7 PO
== END ==
LOC: M LAB REF 16:26
PROVIDERS: ATTEND Nurse Practitioner Adult Health
DX: N39.0 Urinary tract infection, site not specified (principal); R31.9 Hematuria, unspecified

== ENCOUNTER → 2020-05-17 | Outpatient (REF) | payer BC, OTHER ==
[2020-05-17 17:41] LABS: BACTERIA, URINE AUTO NEGATIVE (NEGATIVE); RBC, URINE AUTO 3 /HPF (0-3); SQUAMOUS EPITHELIAL CELL UR AU 0 /HPF (0-6); WBC, URINE AUTO 0 /HPF (0-3)
== END ==
LOC: M SMT 17:20
PROVIDERS: ATTEND Specialist
DX: R10.9 Unspecified abdominal pain (principal)

== ENCOUNTER → 2020-06-14 | Outpatient (CLI) | payer OTHER ==
[~2020-06-14] MED LIST changes: +GASTROGRAFIN SOLUTION 30ML (Q9963) As Ordered ONE; +ISOVUE-370 76% 100ML VIAL As Ordered ONE
--- NOTE | 2020-06-15 03:35 | REP ---
INDICATION: LLQ PAIN. COMPARISON: None TECHNIQUE: Axial contrast-enhanced images from the lung bases to the pubic symphysis using oral and 100 cc Isovue 370 intravenous contrast material. Precontrast images of the abdomen obtained along with coronal and sagittal reformations. This CT examination was performed using the following dose reduction techniques: Automated exposure control, adjustment of mA and/or kv according to the patient's size, and the use of iterative reconstruction technique. FINDINGS: Lung bases are clear. Liver, spleen, pancreas, bilateral adrenal glands and kidneys are normal. The enteric system including stomach, small, and large bowel appears normal. No evidence for obstruction or acute inflammatory process. Normal terminal ileum and appendix are identified in the right lower quadrant. Very few sigmoid diverticula noted without acute diverticulitis. Small fat containing periumbilical hernia. Pelvis demonstrates normal bladder and evidence for prior hysterectomy. No ascites. No free air. No intraperitoneal or retroperitoneal adenopathy. Abdominal aorta and vasculature appear normal. Musculoskeletal structures are intact and without acute osseous abnormality. IMPRESSION: No acute abdominopelvic pathology appreciated. Evidence for prior cholecystectomy and hysterectomy. <Electronically signed by Terry Perez > 06/15/20 [id number]
== END ==
LOC: M RAD 15:38
PROVIDERS: ATTEND Nurse Practitioner Adult Health
DX: R10.30 Lower abdominal pain, unspecified (principal)
CPT/HCPCS: 74178; Q9963; Q9967

== ENCOUNTER → 2020-06-25 | Outpatient (CLI) | payer OTHER ==
[~2020-06-25] MED LIST changes: -GASTROGRAFIN SOLUTION 30ML (Q9963) As Ordered ONE; -ISOVUE-370 76% 100ML VIAL As Ordered ONE
--- NOTE | 2020-06-25 17:11 | REPMRS ---
Patient History The patient states she has not had a clinical breast exam in over a year. Patient is postmenopausal. No known family history of cancer. 3D TOMOSYNTHESIS WAS PERFORMED. The [facility] lifetime risk for breast cancer is 8.5%. Volpara breast density a. Digital Woman Screen Mammo: June 25, 2020 - Exam #: [id number] Bilateral CC and MLO view(s) were taken. Technologist: Helen Marlow, Technologist Prior study comparison: December 16, 2018, digital mammo screening bilat, performed at [facility]. FINDINGS: There are scattered fibroglandular densities. There has been no change in the appearance of the mammogram from the prior studies. There is a mild amount of residual fibroglandular tissue which is fairly symmetric. There is no interval development of dominant mass, architectural distortion, or clustered microcalcification suggestive of malignancy. Assessment: BI-RADS/ACR category 1 mammogram. Negative Mammogram. Recommendation Routine screening mammogram in 1 year (for women over age 40). This mammogram was interpreted with the aid of an FDA-approved computer-aided dectection system. Electronically Signed By: Martin Puckett MD 06/25/20 [id number]
== END ==
LOC: M WHC 15:58
PROVIDERS: ATTEND Nurse Practitioner Adult Health
DX: Z12.31 Encounter for screening mammogram for malignant neoplasm of breast (principal)

== ENCOUNTER → 2020-09-21 | Outpatient (REF) | payer OTHER ==
[~2020-09-21] MED LIST changes: +ERGO500029 PO; -VITA50005 PO
== END ==
LOC: M LAB REF 12:11
PROVIDERS: ATTEND Internal Medicine
DX: R10.32 Left lower quadrant pain (principal)

== ENCOUNTER → 2020-09-24 | Outpatient (CLI) | payer OTHER ==
--- NOTE | 2020-09-24 09:43 | REP ---
INDICATION: HEMATURIA. LLQ PAIN COMPARISON: None TECHNIQUE: Axial noncontrast images from the lung bases to the pubic symphysis with coronal and sagittal reformations. This CT examination was performed using the following dose reduction techniques: Automated exposure control, adjustment of mA and/or kv according to the patient's size, and use of iterative reconstruction technique. FINDINGS: Lung bases are clear. Visualized heart and pericardium normal. Liver, spleen, pancreas, bilateral adrenal glands and kidneys are normal. There is no evidence for perinephric stranding, hydroureteronephrosis, intrarenal or obstructing ureteral calculi. Small calcification in the left hemipelvis remains stable compared to 2019 and is consistent with phlebolith. The enteric system is unremarkable and without obstruction or acute inflammatory process. Normal terminal ileum and appendix identified in the right lower quadrant. Small stable fat containing periumbilical hernia without acute stranding. Pelvis demonstrates normal bladder and prior hysterectomy. No ascites. No free air. No adenopathy. No focal inflammatory stranding. Abdominal aorta without aneurysm. Musculoskeletal structures are intact and without acute osseous abnormality. IMPRESSION: No acute abdominopelvic pathology appreciated. <Electronically signed by Terry Perez > 09/24/20 [id number]
== END ==
LOC: M RAD 09:14
PROVIDERS: ATTEND Internal Medicine
DX: R31.9 Hematuria, unspecified (principal)